=== PATIENT | female | born 1975 | race African-American/Black ===

== ENCOUNTER 2016-08-20 09:32 | Emergency (ER) | payer MEDICAID ==
[~2016-08-20] VITALS: Ht 152.4 cm; Wt 64.0 kg
[2016-08-20 09:34] VITALS: BP 149/92
[2016-08-20] MEDS ORDERED: IBUPROFEN 600MG TABLET PO ONE (11:00)
== END 2016-08-20 11:44 | disposition home or self-care (01) ==
LOC: ER 09:44
DX: S05.12XA Contusion of eyeball and orbital tissues, left eye, initial encounter (principal); S40.012A Contusion of left shoulder, initial encounter; H11.32 Conjunctival hemorrhage, left eye; R55 Syncope and collapse; R53.1 Weakness; R42 Dizziness and giddiness; E11.9 Type 2 diabetes mellitus without complications; F17.200 Nicotine dependence, unspecified, uncomplicated; Z88.2 Allergy status to sulfonamides
CPT/HCPCS: 73000; 73030; 81025; 82962; 99284

== ENCOUNTER 2019-03-26 21:13 | Emergency (ER) | payer MEDICAID ==
[~2019-03-26] VITALS: Ht 152.4 cm; Wt 59.0 kg
[2019-03-27] MEDS: HYDROCODONE/ACETAMINOPHEN 5/325MG TABLET PO ONE (00:22)
[2019-03-27 03:37] VITALS: BP 117/78
== END 2019-03-27 03:53 | disposition home or self-care (01) ==
LOC: ER 21:13
DX: M54.12 Radiculopathy, cervical region (principal); M47.892 Other spondylosis, cervical region; E11.9 Type 2 diabetes mellitus without complications; F17.210 Nicotine dependence, cigarettes, uncomplicated; Z88.2 Allergy status to sulfonamides; Z71.6 Tobacco abuse counseling
CPT/HCPCS: 71045; 72040; 93005; 99283; 99406; Z7610

== ENCOUNTER 2023-10-05 00:03 | Emergency (ER) | payer MEDICAID ==
[~2023-10-05] VITALS: Ht 167.6 cm; Wt 73.0 kg
[2023-10-05 00:16] VITALS: O2SAT 98
[2023-10-05] MEDS: SODIUM CHLORIDE 0.9% 1,000 ML IV ONE (01:00)
[2023-10-05] MEDS: MORPHINE SULFATE 4 MG/ML INJ (FOR IV/IM USE) IV STA (01:01)
[2023-10-05] MEDS: ONDANSETRON HCL 4MG/2ML INJ IV STA (01:01)
[2023-10-05] MEDS: FAMOTIDINE 20MG/2ML VIAL IV STA (01:07)
[2023-10-05 01:44] LABS: BASOPHILS % 0.4 % (0.0-2.0); EOSINOPHILS % 2.2 % (0.0-5.0); HEMATOCRIT. 38.1 % (36.0-48.0); HEMOGLOBIN. 12.7 g/dL (12.0-16.0); LYMPHOCYTES % 12.6 % (20.0-50.0); MEAN CORPUSCULAR HEMOGLOBIN 32.3 pg (28.0-32.0); MEAN CORPUSCULAR HGB CONC 33.2 g/dL (31.0-37.0); MEAN CORPUSCULAR VOLUME 97.2 fL (81.0-99.0); MEAN PLATELET VOLUME 9.6 fl (7.4-10.4); MONOCYTES % 6.8 % (2.0-8.0); PLATELET 246 x1000/uL (130-400); RED BLOOD CELL COUNT 3.92 mill/uL (4.2-5.4); RED CELL DISTRIBUTION WIDTH 13.4 % (11.6-14.6); WHITE BLOOD COUNT 11.4 x1000/uL (4.5-11.0)
[2023-10-05 01:50] LABS: CHLORIDE 109 mEq/L (98-107); POTASSIUM 3.7 mEq/L (3.5-5.1); SODIUM 142 mEq/L (136-145)
[2023-10-05 01:51] LABS: CALCIUM 8.8 mg/dL (8.7-10.4); CARBON DIOXIDE 26 mEq/L (21-32)
[2023-10-05 01:56] LABS: CREATININE 0.9 mg/dL (0.6-1.0); ETHANOL BLOOD < 10 mg/dL (<10); GLUCOSE 98 mg/dL (70-105); TROPONIN I HIGH SENSITIVITY 16 ng/L (3.0-34); UREA NITROGEN BLOOD 16 mg/dL (9-23)
[2023-10-05 01:58] LABS: ALANINE AMINOTRANSFERASE 23 IU/L (10-49); ALBUMIN 3.9 g/dL (3.2-4.8); ASPARTATE AMINOTRANSFERASE 47 IU/L (<34); BILIRUBIN TOTAL 0.3 mg/dL (0.1-1.0); PROTEIN TOTAL 6.7 g/dL (6.0-8.3)
[2023-10-05 02:00] LABS: HCG SCREEN NEGATIVE
[2023-10-05 02:21] LABS: BILIRUBIN DIRECT < 0.1 mg/dL (<=3.0)
[2023-10-05] MEDS: LABETALOL 5MG/ML 4ML INJ IV ONE (02:55)
[2023-10-05] MEDS ORDERED: ONDA4TAB50 MT (06:13)
[2023-10-05] MEDS ORDERED: PROT20 MT (06:13)
[2023-10-05] MEDS: IOHEXOL-300 100 ML BOTTLE ONE (06:49)
[2023-10-05 09:00] VITALS: BP 143/80; PULSE 90; RESP 14; TEMP 98.2
== END 2023-10-05 10:02 | disposition home or self-care (01) ==
LOC: ER 00:03
DX: R10.13 Epigastric pain (principal); E11.9 Type 2 diabetes mellitus without complications; Z88.2 Allergy status to sulfonamides
CPT/HCPCS: 80076; 80048; 80320; 84703; 83605; 83690; 85025; 84484; 36415; 71045; 74177; 76705; 93005; 96361; 96374; 96375; 99285; Q9967; J3490 ×2; J2405; J2270; J7030; G0480